=== PATIENT | female | born 1950 | race Caucasian/White ===

== ENCOUNTER 2023-05-23 08:04 | Emergency (ER) | payer MEDICARE, SELFPAY ==
[2023-05-23 08:20] VITALS: BP 135/86
--- NOTE | 2023-05-23 10:38 | ED.GENMED ---
History of Present Illness
General
Chief Complaint: Head Injury
Source: patient and spouse
Exam Limitations: none
Time Seen by Provider: 05/23/23 09:40
Travel History
Have you had any contact with someone who has COVID-19?: No
Do you have any symptoms of coronavirus? Fever > 100 degrees, chills, cough, shortness of breath, sore throat, loss of taste or smell, muscle aches, or headache?: No
History of Present Illness
History of Present Illness:
72-year-old female states that she was getting out of bed and her feet got caught in her pajamas and she fell and struck her head on the table. She did not lose consciousness. She admits that a friend of hers after head injury when she did
not seek medical attention and she became nervous. Patient states she overall feels pretty well right now. She recently did have vertigo this week but symptoms controlled. Patient states she got dizzy after her ear popped and she saw her primary
care physician. Patient denies neck pain or back pain. No pain in her extremities.
Past History
Past History
ED Past Medical History: Hypercholesterolemia
ED Past Surgical History: Cholecystectomy
Social History
Tobacco: Non-smoker
Alcohol: Occasional
Personal:
Phy Exam
Physical Exam
Physical Exam:
CONSTITUTIONAL Patient alert and oriented to person, place and time. Well-appearing. Vital signs reviewed.
HEAD hematoma to the left scalp posteriorly
EYES eyelids normal to inspection, Pupils equally round and reactive to light, Extraocular muscles intact, Conjunctiva normal, Sclera normal.
NECK normal range of motion, Trachea midline, no jugular venous distention.
RESPIRATORY CHEST No respiratory distress noted,
ABDOMEN abdomen nontender, Bowel sounds normal. No distention.
BACK normal inspection, no obvious deformities
UPPER EXTREMITY range of motion normal, Motor strength normal, no cyanosis, no edema.
LOWER EXTREMITY range of motion normal, Motor strength normal, no cyanosis, no edema.
NEURO Speech normal, No focal motor deficits, Marshallberg coma scale 15, Memory normal, Cranial Nerves intact to screening exam.
SKIN skin warm, dry, and normal in color.
PSYCHIATRIC patient oriented to person place and time, Normal affect.
Course
Orders/Labs/Results
Orders:
Orders
05/23/23 10:34
CT Head W/o Iv Contrast Stat
Comment:
Reason For Exam: fall
Vital Signs
Initial and Last Documented VS:
Initial Vital Signs
Temp Pulse Resp BP Pulse Ox
97.7 F 87 18 135/86 99
05/23/23 08:20 05/23/23 08:20 05/23/23 08:20 05/23/23 08:20 05/23/23 08:20
Last Documented Vital Signs
Temp Pulse Resp BP Pulse Ox
97.7 F 87 18 135/86 99
05/23/23 08:20 05/23/23 08:20 05/23/23 08:20 05/23/23 08:20 05/23/23 08:20
MDM/Problems Addressed
MDM/Problems Addressed:
Head injury
*Radiology
Radiology exam reviewed: preliminary read by ED provider (No obvious bleeding) and radiology read reviewed
*Pulse Oximetry
Patient hypoxic: no
*Critical Care Note
Total Time (30-74mins, 75-104mins- exclusive of procedures): Not Applicable
Data Reviewed
Source: patient
Prescriptions/Medications Considered But Not Given:
Offered Tylenol and considered pain control but patient reports her pain is controlled
Further Testing Considered But Not Given:
Consider C-spine imaging but no midline tenderness. Normal range of motion.
Patient Management
Escalation/DeEscalation of care consider admission/obs:
CT negative. Okay for discharge
ED Attending Note
-
Portions of this chart may have been created with voice recognition software.� Occasional wrong word or��sound alike� substitutions may have occurred due to the inherent limitations of voice recognition software.
Discharge Plan
Departure
Patient Disposition: Home (Routine Discharge)
Date of Disposition: 05/23/23
Time of Disposition: 12:57
Patient with high blood pressure during this ER visit?: No
Discharge Problem:
Head injury
Instructions: Head Injury in Adults (DC)
Prescriptions:
No Action
Excedrin Migraine 1 EACH tablet
1 tab PO Q6HPRN PRN (Reason: migraine)
cholecalciferol (vitamin D3) [Vitamin D3] 1,000 UNIT capsule
1,000 unit PO DAILY
Airborne (ascorbate sodium)
1 tab PO DAILY
multivitamin Tablet
1 tab PO DAILY
levothyroxine [Synthroid] 25 mcg tablet
25 mcg PO DAILY
esomeprazole magnesium 20 mg capsule,delayed release(DR/EC)
20 mg PO DAILY
rosuvastatin 5 mg tablet
5 mg PO QPM
Advil PM 200-38 mg Tablet
1 tab PO HS
Reacted Magnesium
1 cap PO HS
oxycodone 5 mg tablet
5 - 10 mg PO Q4HPRN PRN (Reason: moderate to severe pain) Qty: 10 0RF
ondansetron 4 mg tablet,disintegrating
4 mg PO Q6H PRN (Reason: nausea) Qty: 7 0RF
Referrals:
Kamilah Roy MD [Family Provider] -
Activity Restrictions/Additional Instructions:
Return to [facility] for worsening symptoms, vomiting, weakness of any kind or any other concerns.
Interventions
Interventions:
*Risk Screen - Suicide Last Done: 05/23/23 08:20
*General Assessment Last Done: 05/23/23 11:41
*Neglect/Abuse Screening Last Done: 05/23/23 08:20
ED- Fall Risk Assessment Last Done: 05/23/23 09:39
*ED COVID-19 Vaccine History Last Done: 05/23/23 08:20
ED- Neurological Assessment Last Done: 05/23/23 09:39
ED-Skin Assessment Last Done: 05/23/23 10:17
== END 2023-05-23 13:17 | disposition home or self-care (01) ==
LOC: EMR 08:04
PROVIDERS: EMERGENCY PHYSICIAN Emergency Medicine; FAMILY PHYSICIAN Family Medicine
DX: S09.90XA Unspecified injury of head, initial encounter (principal); W01.190A Fall on same level from slipping, tripping and stumbling with subsequent striking against furniture, initial encounter
CPT/HCPCS: 99284; 70450

== ENCOUNTER → 2023-06-03 09:42 | Outpatient (REF) | payer MEDICARE, SELFPAY ==
[2023-06-03 10:33] LABS: 24 Hour Urine Total Volume 1800 ml
[2023-06-03 10:42] LABS: 24 Hour Urine Calcium 131.4 mg/day; Urine Calcium 7.3 mg/dl
== END ==
LOC: REG 09:42
PROVIDERS: ATTENDING PHYSICIAN Internal Medicine; FAMILY PHYSICIAN Family Medicine; REFERRING PHYSICIAN Obstetrics & Gynecology
DX: M81.0 Age-related osteoporosis without current pathological fracture (principal)
CPT/HCPCS: 81050; 82340; 82570

== ENCOUNTER → 2023-07-06 10:32 | Outpatient (REF) | payer MEDICARE, SELFPAY ==
[2023-07-06 12:32] LABS: TSH Reflex To Free T4 3.39 uIU/ml (0.47-4.68)
[2023-07-09 08:36] LABS: FTA-ABS/T. pallidum, IgG Serum Non Reactive (Non Reactive)
[2023-07-12 15:49] LABS: Lyme Antibody Screen, EIA Negative (Negative)
== END ==
LOC: REG 10:32
PROVIDERS: ATTENDING PHYSICIAN Otolaryngology; FAMILY PHYSICIAN Family Medicine
DX: H81.312 Aural vertigo, left ear (principal)
CPT/HCPCS: 36415; 84443; 86618; 86780

== ENCOUNTER → 2023-08-18 14:16 | Outpatient (REF) | payer MEDICARE, SELFPAY | LOC: PAVMRI 14:16 | PROVIDERS: ATTENDING PHYSICIAN Otolaryngology; FAMILY PHYSICIAN Family Medicine | DX: H81.4 Vertigo of central origin (principal) | CPT/HCPCS: 70553; A9575 ==

== ENCOUNTER → 2023-09-28 13:13 | Outpatient (REF) | payer MEDICARE, SELFPAY | LOC: REG 13:13 | PROVIDERS: ATTENDING PHYSICIAN Otolaryngology; FAMILY PHYSICIAN Family Medicine | DX: J30.89 Other allergic rhinitis (principal) | CPT/HCPCS: 82785; 86003 ==

== ENCOUNTER → 2023-11-23 10:22 | Outpatient (REF) | payer MEDICARE, SELFPAY ==
[2023-11-23 12:11] LABS: ALT (SGPT) 24 U/L (0-35); AST (SGOT) 30 U/L (14-36); Albumin 4.5 g/dl (3.5-5.0); Alkaline Phosphatase 74 U/L (38-126); Blood Urea Nitrogen 13 mg/dl (7-17); Calcium 9.5 mg/dl (8.4-10.2); Carbon Dioxide 25 mmol/L (22-30); Chloride 104 mmol/L (98-107); Glucose 99 mg/dl (70-99); Potassium 4.7 mmol/L (3.5-5.1); Sodium 136 mmol/L (135-145); Total Bilirubin 0.4 mg/dl (0.2-1.3); Total Protein 7.7 g/dl (6.3-8.2); eGFR > 60.00
[2023-11-23 12:25] LABS: Free T4 0.85 ng/dl (0.78-2.19); Vitamin D, 25-OH*** 39.2 ng/mL (30-80)
[2023-11-23 12:38] LABS: TSH 2.67 uIU/ml (0.47-4.68)
== END ==
LOC: REG 10:22
PROVIDERS: ATTENDING PHYSICIAN Physician Assistant; FAMILY PHYSICIAN Family Medicine
DX: E03.8 Other specified hypothyroidism (principal); E06.3 Autoimmune thyroiditis; E55.9 Vitamin D deficiency, unspecified
CPT/HCPCS: 36415; 80053; 82306; 84439; 84443

== ENCOUNTER → 2024-08-08 13:31 | Outpatient (REF) | payer MEDICARE, SELFPAY ==
[2024-08-08 15:26] LABS: ALT (SGPT) 23 U/L (0-35); AST (SGOT) 29 U/L (14-36); Albumin 4.8 g/dl (3.5-5.0); Alkaline Phosphatase 70 U/L (38-126); Blood Urea Nitrogen 19 mg/dl (7-17); Calcium 9.7 mg/dl (8.4-10.2); Carbon Dioxide 24 mmol/L (22-30); Chloride 104 mmol/L (98-107); Glucose 94 mg/dl (70-99); Potassium 4.5 mmol/L (3.5-5.1); Sodium 139 mmol/L (135-145); Total Bilirubin 0.5 mg/dl (0.2-1.3); Total Protein 7.9 g/dl (6.3-8.2); eGFR > 60.00
[2024-08-08 15:41] LABS: Vitamin D, 25-OH*** 46.4 ng/mL (30-80)
== END ==
LOC: REG 13:31
PROVIDERS: ATTENDING PHYSICIAN Student in an Organized Health Care Education/Training Program; FAMILY PHYSICIAN Family Medicine
DX: E55.9 Vitamin D deficiency, unspecified (principal); M81.0 Age-related osteoporosis without current pathological fracture
CPT/HCPCS: 36415; 80053; 82306; 82523

== ENCOUNTER → 2024-12-26 14:11 | Outpatient (REF) | payer MEDICARE, SELFPAY ==
[2024-12-26 15:12] LABS: ALT (SGPT) 27 U/L (0-35); AST (SGOT) 28 U/L (14-36); Albumin 4.6 g/dl (3.5-5.0); Alkaline Phosphatase 67 U/L (38-126); Blood Urea Nitrogen 19 mg/dl (7-17); Calcium 9.4 mg/dl (8.4-10.2); Carbon Dioxide 23 mmol/L (22-30); Chloride 104 mmol/L (98-107); Glucose 98 mg/dl (70-99); Potassium 4.6 mmol/L (3.5-5.1); Sodium 135 mmol/L (135-145); Total Protein 7.8 g/dl (6.3-8.2); eGFR > 60.00
[2024-12-26 15:29] LABS: Vitamin D, 25-OH*** 39.6 ng/mL (30-80)
[2024-12-26 15:42] LABS: TSH 2.88 uIU/ml (0.47-4.68)
== END ==
LOC: REG 14:11
PROVIDERS: ATTENDING PHYSICIAN Physician Assistant
DX: E03.8 Other specified hypothyroidism (principal); E06.3 Autoimmune thyroiditis; E55.9 Vitamin D deficiency, unspecified
CPT/HCPCS: 36415; 80053; 82306; 84439; 84443